=== PATIENT | male | born 1995 ===

== ENCOUNTER 2019-02-28 20:08 | Emergency (ER) | payer OTHER ==
[2019-02-28 20:29] VITALS: BP 138/92
[2019-02-28] MEDS ORDERED: Lidocaine 1% MPF ** 5 ML VIAL INJ ONE (20:57)
--- NOTE | 2019-02-28 21:03 | UC ---
Upper Extremity HPI - HPI Summary HPI Summary: 23 year old male, no PMH, no medications presents after fall while carrying wine bottles. no head trauma, no LOC. + laceration to MCP 5th finger right hand. Patient has prior injury to 5th finger R hand from fracture, did not set correctly, unable to fully extend. + bleeding, able to control with pressure. MIld tingling at finger, sensation, strength OK. TEtanus between 3-4 years ago. no other injuries - History of Current Complaint Chief Complaint: UCLaceration Stated Complaint: FINGER LAC Time Seen by Provider: 02/28/19 20:46 Hx Obtained From: Patient, Family/Computer Architect - friend ?: No Onset/Duration: Sudden Onset, Lasting Hours Severity Initially: Moderate Severity Currently: Moderate Pain Intensity: 5 Pain Scale Used: 0-10 Numeric Location Of Pain: Is Discrete @ - 5th base finger r Character: Aching, Throbbing Aggravating Factor(s): Movement Alleviating Factor(s): Rest Associated Signs And Symptoms: Positive: Other - bleeding - Allergies/Home Medications Allergies/Adverse Reactions: Allergies Allergy/AdvReac Type Severity Reaction Status Date / Time No Known Allergies Allergy Verified 02/28/19 20:26 Home Medications: Home Medications NK [No Home Medications Reported] 02/28/19 [History Confirmed 02/28/19] PMH/Surg Hx/FS Hx/Imm Hx Previously Healthy: Yes - Surgical History Surgical History: Yes Surgery Procedure, Year, and Place: wisdom teeth - Family History Known Family History: Positive: Non-Contributory - Social History Alcohol Use: Occasionally Substance Use Type: Marijuana Smoking Status (MU): Never Smoked Tobacco Review of Systems All Other Systems Reviewed And Are Negative: Yes Constitutional: Positive: Negative Skin: Positive: Other - laceration to 5th R finger Musculoskeletal: Positive: Edema, Myalgia Is Patient Immunocompromised?: No Physical Exam Triage Information Reviewed: Yes Appearance: Well-Appearing, No Pain Distress, Well-Nourished Vital Signs: Initial Vital Signs Temp 98.7 F 02/28/19 20:26 Pulse 93 02/28/19 20:26 Resp 18 02/28/19 20:26 BP 138/92 02/28/19 20:26 Pulse Ox 96 02/28/19 20:26 Vital Signs Reviewed: Yes Eyes: Positive: Conjunctiva Clear Musculoskeletal: Positive: Strength Intact, ROM Intact - 5th finger, R wrist Neurological: Positive: Other: - SITLT R hand Psychological Exam: Normal Skin: Positive: Other - full thickness laceration to right 5th finger near MCP, + bleeding, controlled with pressure. flexion cntracture at PIP, unable to fully extend, patient states this is baseline fr him after fx at age 9. full sensation to light touch. full ext/ flex of all over finger joints/ MCP. full strength of all phalanxs 5th finger against resistence. Wound irrigated, no FB seen. Procedures - Laceration/Wound Repair 1 Location: upper extremity - right base 5th finger Description: Linear Anesthesia: 1.0%, Lido Length, Depth and Shape: 1.5 cm x 6mmx 4mm Betadine Prep?: No - chlorhexadine Irrigated w/ Saline (ccs): 100 Laceration/Wound Explored: clean, no foreign body removed Closure: Single Layer Suture Type: Nylon - 4.0 Number of Sutures: 6 Layer Closure?: No Sterile Dressing Applied?: Yes - skin glue Upper Extremity Course/Dx - Course Course Of Treatment: Finger laceration - Do not submerge wound until sutures removed, OK to shower/ wash hands, no bathing/ soaking. - Tylenol/ MOtrin as needed for pain - Stitches to be removed within 5-7 days. - Decrease movement to help heal over next 2-3 days - Differential Dx/Diagnosis Differential Diagnosis/HQI/PQRI: Laceration Provider Diagnosis: Laceration of finger, right Discharge - Sign-Out/Discharge Documenting (check all that apply): Patient Departure All imaging exams completed and their final reports reviewed: No Studies - Discharge Plan Condition: Good Disposition: HOME Patient Education Materials: Care For Your Stitches (ED), Laceration (DC) Referrals: No Primary Care Phys,NOPCP [Primary Care Provider] - Additional Instructions: Finger laceration - Do not submerge wound until sutures removed, OK to shower/ wash hands, no bathing/ soaking. - Tylenol/ MOtrin as needed for pain - Stitches to be removed within 5-7 days. - Decrease movement to help heal over next 2-3 days - Billing Disposition and Condition Condition: GOOD Disposition: Home - Attestation Statements Provider Attestation: This patient was not seen by me. I was available for consult. MAR
== END 2019-02-28 22:05 | disposition home or self-care (01) ==
LOC: UCEAST 20:08
DX: S61.216A Laceration without foreign body of right little finger without damage to nail, initial encounter (principal); W18.30XA Fall on same level, unspecified, initial encounter; Y92.9 Unspecified place or not applicable
CPT/HCPCS: 12011; 99201; G0463

== ENCOUNTER 2019-03-07 16:25 | Emergency (ER) | payer OTHER ==
[2019-03-07 16:36] VITALS: BP 136/84
[2019-03-07] MEDS ORDERED: Benzoin Compound STICK TOPICAL ONE (16:46)
--- NOTE | 2019-03-07 16:57 | UC ---
HPI Wound/Suture Re-check - HPI Summary HPI Summary: Sutures placed on his right medial fifth finger at the base 7 days ago. He comes in to have them removed with no complaints. - History Of Current Complaint Chief Complaint: UCLaceration Stated Complaint: SUTURE REMOVAL Time Seen by Provider: 03/07/19 16:34 Pain Intensity: 1 - Allergies/Home Medications Allergies/Adverse Reactions: Allergies Allergy/AdvReac Type Severity Reaction Status Date / Time No Known Allergies Allergy Verified 03/07/19 16:36 PMH/Surg Hx/FS Hx/Imm Hx Previously Healthy: Yes - Surgical History Surgical History: Yes Surgery Procedure, Year, and Place: wisdom teeth - Family History Known Family History: Positive: Non-Contributory - Social History Alcohol Use: Occasionally Substance Use Type: Marijuana Smoking Status (MU): Never Smoked Tobacco Review of Systems All Other Systems Reviewed And Are Negative: Yes Physical Exam - Summary Physical Exam Summary: Wound is clean with no sign of infection. Triage Information Reviewed: Yes Appearance: Well-Appearing, No Pain Distress Vital Signs: Initial Vital Signs Temp 98 F 03/07/19 16:32 Pulse 71 03/07/19 16:32 Resp 16 03/07/19 16:32 BP 136/84 03/07/19 16:32 Pulse Ox 98 03/07/19 16:32 Vital Signs Reviewed: Yes Skin Exam: Other - Wound is healing and clean in appearance. Course/Dx - Course Course Of Treatment: I cleaned up the wound and removed the 2 stitches. The wound does not look ready for complete removal and Steri-Strips were placed. I recommended that he wait another 3-7 days. - Diagnosis Provider Diagnosis: Encounter for wound re-check Discharge - Sign-Out/Discharge Documenting (check all that apply): Patient Departure All imaging exams completed and their final reports reviewed: No Studies - Discharge Plan Condition: Stable Disposition: HOME Patient Education Materials: Stitches Removal (ED) Referrals: No Primary Care Phys,NOPCP [Primary Care Provider] - - Billing Disposition and Condition Condition: STABLE Disposition: Home
== END 2019-03-07 17:07 | disposition home or self-care (01) ==
LOC: UCEAST 16:25
DX: S61.216D Laceration without foreign body of right little finger without damage to nail, subsequent encounter (principal); X58.XXXD Exposure to other specified factors, subsequent encounter
CPT/HCPCS: 99212; G0463